=== PATIENT | female | born 1985 | race Caucasian/White ===

== ENCOUNTER 2023-02-14 09:24 | Day surgery (SDC) | payer OTHER ==
[~2023-02-14] VITALS: Ht 170.2 cm; Wt 88.0 kg
[~2023-02-14 09:24] MED LIST: CYMB1CAP5 PO; NS 1,000 ML IV ONE; PROTPAK PO
[2023-02-14] MEDS ORDERED: LIDOCAINE 2% 100MG/5ML SDV (FOR ANES.) As Ordered ONE (11:01)
[2023-02-14] MEDS ORDERED: propofoL 200 MG/20 ML VIAL As Ordered ONE (11:01)
[2023-02-14 12:09] VITALS: TEMP 97.3
[2023-02-14 12:19] VITALS: BP 129/87; O2SAT 99
== END 2023-02-14 12:19 | disposition home or self-care (01) ==
LOC: EDBD → M OPP 09:24 → UNMERGE 02-15 08:30 → MERGE 02-15 08:30
PROVIDERS: ATTEND Internal Medicine Gastroenterology
DX: K63.5 Polyp of colon (principal); K64.8 Other hemorrhoids; R63.4 Abnormal weight loss; K44.9 Diaphragmatic hernia without obstruction or gangrene; K29.70 Gastritis, unspecified, without bleeding; K92.0 Hematemesis; Z98.0 Intestinal bypass and anastomosis status; Z79.899 Other long term (current) drug therapy; Z88.1 Allergy status to other antibiotic agents; Z88.8 Allergy status to other drugs, medicaments and biological substances; Z91.018 Allergy to other foods